=== PATIENT | male | born 1985 | race Caucasian/White ===

== ENCOUNTER 2016-12-15 14:37 | Outpatient (CLI) | payer MEDICAID | END 2016-12-15 14:38 | disposition EMS.NT | DX: Z03.89 Encounter for observation for other suspected diseases and conditions ruled out (principal) ==

== ENCOUNTER 2022-02-23 08:25 | Emergency (ER) | payer SELFPAY ==
[2022-02-23 08:51] VITALS: BP 136/81
--- NOTE | 2022-02-23 09:27 | ED Physician Documentation ---
PD HPI HEENT - Stated complaint Stated Complaint: TOOTH PX - Chief complaint Chief Complaint: Heent - History obtained from History obtained from: Patient - History of Present Illness Timing - onset: How many days ago (several) Timing - duration: Days Timing - details: Gradual onset, Still present Location: Tooth (left lower tooth base and gum with swelling and redness, mild drainage from broken tooth gumline.) Associated symptoms: No: Fever, Congestion, Unable to swallow Similar symptoms before: Diagnosis (dental infections in the past. Had another tooth removed with root canal and the dentist did not complete the crown. Had not gone back to that dentist.) Recently seen: Not recently seen Review of Systems Constitutional: denies: Fever, Chills Nose: denies: Rhinorrhea / runny nose, Congestion Throat: reports: Dental pain / toothache. denies: Sore throat Respiratory: denies: Cough Skin: denies: Rash, Lesions Neurologic: denies: Altered mental status, Headache PD PAST MEDICAL HISTORY - Past Medical History Respiratory: Asthma - Past Surgical History Past Surgical History: No - Present Medications Home Medications: Ambulatory Orders Medication Instructions Recorded Confirmed HYDROcod/ACETAM 5/325 [Gro[place] 5/325] 1 ea PO Q6H PRN #18 tablet 02/23/22 Ibuprofen [Motrin] 600 mg PO TID PRN #20 tab 02/23/22 clindamycin HCL [Clindamycin HCl] 300 mg PO TID 7 Days #20 cap 02/23/22 - Allergies Allergies/Adverse Reactions: Allergies Allergy/AdvReac Type Severity Reaction Status Date / Time No Known Drug Allergies Allergy Verified 06/15/16 19:59 - Social History Does the pt smoke?: Yes Smoking Status: Current every day smoker Does the pt drink ETOH?: Yes Does the pt have substance abuse?: No - Immunizations Immunizations are current?: Yes Immunizations: TDAP >10years/unknown - POLST Patient has POLST: No PD ED PE NORMAL - Vitals Vital signs reviewed: Yes - General General: Alert and oriented X 3, No acute distress, Well developed/nourished - HEENT HEENT: Moist mucous membranes, Pharynx benign. No: Dentition benign (multiple caries and decay with left lower couple of teeth broken at gumline. Left lower tooth with gum redness and swelling extending to the buccal gingiva. ) - Neck Neck: Supple, no meningeal sign, No adenopathy - Neuro Neuro: Alert and oriented X 3, No motor deficit, Normal speech Results - Vitals Vitals: Vital Signs - 24 hr 02/23/22 08:50 Temperature 37.2 C Heart Rate 69 Respiratory 19 Rate Blood Pressure 136/81 H O2 Saturation 100 Oxygen O2 Source Room air PD MEDICAL DECISION MAKING - ED course Complexity details: considered differential (dental infection. His extractions might be difficult enough to warrant oral surgeon above a dentist. Gave number for Parmjit but pt would need to check if insurance taken, appropriate task, etc. ), d/w patient Departure - Departure Disposition: Home, Self Care Clinical Impression: Infected dental caries Condition: Stable Record reviewed to determine appropriate education?: Yes Instructions: ED Tooth Pain Follow-Up: William Parnell DDS [Provider Admit Priv/Credential] - Prescriptions: clindamycin HCL [Clindamycin HCl] 300 mg PO TID 7 Days #20 cap Ibuprofen [Motrin] 600 mg PO TID PRN #20 tab PRN Reason: Pain HYDROcod/ACETAM 5/325 [[place] 5/325] 1 ea PO Q6H PRN #18 tablet PRN Reason: Pain Comments: Rinse with antiseptic mouthwash 2 or 3 times daily (such as Listerine or such). Use the clindamycin antibiotic 3 times daily for the next 5 to 7 days until this is well improved. Ibuprofen 3 times daily with food to help with inflammation and pain. To that add Tylenol or hydrocodone/acetaminophen if needed for worse pain. Follow-up with the dentist. I did provide the name of an oral surgeon in [place]. Call their office and see if they would be an appropriate follow-up though it may be that this is more of a general dentistry problem rather than oral surgeon per se. I transmitted prescriptions to [facility] pharmacy in [place]. I am prescribing a short course of narcotic pain medication for you. These are potentially dangerous and addictive medications that should be used carefully. These medications may constipate you. Take an [id number]-[id number] stool softener such as docusate twice daily with plenty of water while taking these medications. If you go 24 hours without a bowel movement, take [id number] MiraLAX, per package instructions. Do not drink or drive while taking these medications. If you received narcotic or sedating medications while in the emergency department do not drive for 24 hours. Store this medication in a safe, secure place and out of reach of children. It is a violation of federal law to give or sell this medication to another person or to use in a manner other than prescribed. The ED will not refill narcotic prescriptions, including prescriptions lost or stolen. You can dispose of unwanted medications at [facility] office or at several pharmacies such as [facility]. Discharge Date/Time: 02/23/22 10:17
[2022-02-23] MEDS ORDERED: ACETAMINOPHEN 325 MG TABLET PO STA (09:40)
[2022-02-23] MEDS ORDERED: CLINDAMYCIN 150 MG CAPSULE PO STA (09:40)
== END 2022-02-23 10:17 | disposition home or self-care (01) ==
LOC: ED 08:25
DX: K02.9 Dental caries, unspecified (principal); F17.200 Nicotine dependence, unspecified, uncomplicated
CPT/HCPCS: 99283; A9270

== ENCOUNTER 2023-06-13 12:06 | Emergency (ER) | payer OTHER ==
--- NOTE | 2023-06-13 12:57 | ED Physician Documentation ---
PD HPI UPPER EXT INJURY - Stated complaint Stated Complaint: R ARM/ELBOW INJURY - Chief complaint Chief Complaint: Trauma Ext - History obtained from History obtained from: Patient - History of Present Illness Location: Right, Elbow Type of injury: Twist Where injury occurred: Work Timing - onset: How many weeks ago (3) Timing - duration: Weeks (3) Timing - details: Abrupt onset, Still present Improved by: Rest, Immobilization Worsened by: Moving, Palpating Associated symptoms: No: Weakness, Numbness, Tingling, Swelling, Discolored Similar symptoms before: Diagnosis (ligament and tendon injury) Recently seen: Not recently seen - Additonal information Additional information: Gopi Serna is a 37-year-old male 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 He had some tenderness associated with that initially over the brachioradialis and the medial epicondyle. This pain became much worse when he attempted to lift a heavy lift into the back of a truck. Since that time he has had to take off work about every other day and he is unable to do his usual duties at work. He is having a hard time shifting his car. He reports that he has had injuries to ligaments and tendons previously. Review of Systems Constitutional: denies: Fever Ears: denies: Ear pain Nose: denies: Congestion Throat: denies: Sore throat Respiratory: denies: Cough GI: denies: Vomiting, Diarrhea PD PAST MEDICAL HISTORY - Past Medical History Past Medical History: Yes Respiratory: Asthma - Past Surgical History Past Surgical History: No - Present Medications Home Medications: Ambulatory Orders Medication Instructions Recorded Confirmed No Known Home Medications 06/13/23 06/13/23 - Allergies Allergies/Adverse Reactions: Allergies Allergy/AdvReac Type Severity Reaction Status Date / Time No Known Drug Allergies Allergy Verified 06/13/23 12:20 - Social History Does the pt smoke?: Yes Smoking Status: Current every day smoker Does the pt drink ETOH?: Yes Does the pt have substance abuse?: No - Immunizations Immunizations are current?: Yes Immunizations: TDAP >10years/unknown - POLST Patient has POLST: No PD ED PE NORMAL - Vitals Vital signs reviewed: Yes (normal ) - General General: Alert and oriented X 3, No acute distress, Well developed/nourished - HEENT HEENT: Atraumatic, PERRL, EOMI - Respiratory Respiratory: No respiratory distress - Derm Derm: Normal color, Warm and dry, No rash - Extremities Extremities: No deformity, No edema, Other (mild tenderness over the brachioradialis and the medial epicondyle. Normal ROM of the elbow) - Neuro Neuro: Alert and oriented X 3, tie presser 2-12 intact, No motor deficit, No sensory deficit, Normal speech Eye Opening: Spontaneous Motor: Obeys Commands Verbal: Oriented GCS Score: 15 - Psych Psych: Normal mood, Normal affect Results - Vitals Vitals: Vital Signs - 24 hr 06/13/23 12:16 Temperature 36.3 C L Heart Rate 94 Respiratory 16 Rate Blood Pressure 124/63 O2 Saturation 97 Oxygen O2 Source Room air PD Medical Decision Making - ED course Complexity details: reviewed old records, re-evaluated patient, considered differential, d/w patient ED course: 37-year-old male who wrenched his forearm holding onto a construction drill subsequently lifted something heavy and now has persistent symptoms. His injury is consistent with muscle and ligament injury and we have immobilized his arm we will provide him with a note for work for reduced use of his right arm and have him follow-up with orthopedics for potential physical therapy. Departure - Departure Disposition: 01 Home, Self Care Clinical Impression: Strain of elbow and forearm Qualifiers: Encounter type: initial encounter Laterality: right Qualified Code(s): S56.911A - Strain of unspecified muscles, fascia and tendons at forearm level, right arm, initial encounter Condition: Stable Instructions: ED Sprain Elbow, Tendonitis and Tenosynovitis Follow-Up: Nolberto Onofre MD [Provider Admit Priv/Credential] - Comments: Gopi, today it looks like you have strained the muscles and ligaments in your forearm and this will likely take months to heal entirely. For now we have placed you into an immobilizing device and my recommendation is to follow-up with the orthopedic doctor about physical therapy. I have given you a note for work for reduced use of your right arm for 1 month. You may need longer. Forms: Activity restrictions
[2023-06-13] MEDS ORDERED: DEXAMETHASONE 10 MG/ML VIAL PO STA (13:03)
[2023-06-13] MEDS ORDERED: CHERRY SYRUP 10 ML UDC PO ONE (13:03)
[2023-06-13 14:01] VITALS: BP 121/67; O2SAT 98
== END 2023-06-13 13:45 | disposition home or self-care (01) ==
LOC: ED 12:06
DX: S56.911A Strain of unspecified muscles, fascia and tendons at forearm level, right arm, initial encounter (principal); X50.1XXA Overexertion from prolonged static or awkward postures, initial encounter; X50.0XXA Overexertion from strenuous movement or load, initial encounter; Y93.H3 Activity, building and construction; Y99.0 Civilian activity done for income or pay; F17.200 Nicotine dependence, unspecified, uncomplicated
CPT/HCPCS: 99282; 99283; A9270

== ENCOUNTER 2023-07-03 08:00 | Outpatient (CLI) | payer OTHER ==
--- NOTE | 2023-07-03 11:06 | XRAY Report ---
PROCEDURE: Elbow 3 View RT INDICATIONS: RIGHT ELBOW FRACTURE TECHNIQUE: 3 views of the elbow were acquired. COMPARISON: None. FINDINGS: Bones: No fractures or dislocations. No suspicious bony lesions. Soft tissues: No effusion. No suspicious soft tissue calcifications or masses. IMPRESSION: No definite fracture identified. Reviewed by: Dane Helm on 07/03/2023 11:04 AM [facility] Approved by: Dane Helm on 07/03/2023 11:04 AM [facility] Station ID: [id number]
== END 2023-07-03 23:59 | disposition home or self-care (01) ==
LOC: DI.WOS 08:00
PROVIDERS: ATTEND Physician Assistant Surgical
DX: M25.521 Pain in right elbow (principal)

== ENCOUNTER 2023-09-08 08:12 | Outpatient (CLI) | payer OTHER ==
--- NOTE | 2023-09-10 09:58 | MRI Report ---
PROCEDURE: Elbow RT WO INDICATIONS: ELBOW SPRIAN TECHNIQUE: Noncontrast coronal proton density fast spin echo and T2 fast spin echo with fat saturation, axial an d sagittal T1 spin echo and T2 fast spin echo with fat saturation through the elbow. COMPARISON: Right elbow radiograph dated 07/03/2023. FINDINGS: Image quality: Excellent. Lateral structures: The lateral ulnar collateral ligament and radial collateral ligament both appear thickened at their lateral epicondyle insertion. The overlying common extensor tendon also appears thickened with subtle intrasubstance T2 hyperintense signal at its lateral epicondylar insertion. Medial structures: The ulnar collateral ligament appears intact. The overlying common flexor tendon appears normal. The ulnar nerve appears normal in size and signal within the cubital tunnel. Anterior structures: Distal biceps tendon is thickened at its proximal radial insertion. No biceps te ndon rupture. The brachialis tendon is intact. No bicipitoradial bursal fluid. The median and radial neurovascular bundles appear normal; no focal muscle atrophy to suggest nerve impingement. Posterior structures: The triceps tendon appears thickened with intrasubstance T2 hyperintense signa l at its proximal olecranon insertion.. No olecranon bursal fluid. Bone and cartilage: No bone marrow contusions or fractures. No osteochondral injuries. IMPRESSION: 1. Suggestion of mild lateral epicondylitis with sprain/low-grade intrasubstance partial thickness in volving proximal lateral collateral ligaments and tendinosis involving overlying common extensor tend on origin. 2. Tendinosis and low-grade intrasubstance partial thickness tear involving distal triceps tendon at its proximal olecranon insertion. 3. Distal biceps tendinosis at its proximal radial insertion. 4. No marrow edema. No fracture or dislocation. No osteochondral injuries. Reviewed by: Jordan Davis MD on 09/10/2023 9:57 AM PST Approved by: Jordan Davis MD on 09/10/2023 9:57 AM PST Station ID: [id number]
== END 2023-09-08 08:13 | disposition home or self-care (01) ==
LOC: DI 08:12
PROVIDERS: ATTEND Physician Assistant Surgical
DX: S53.491A Other sprain of right elbow, initial encounter (principal); M67.823 Other specified disorders of tendon, right elbow